=== PATIENT | female | born 1955 | race Caucasian/White ===

== ENCOUNTER 2023-05-25 09:48 | Outpatient (CLI) | payer BC, MEDICARE ==
[2023-05-25] MEDS ORDERED: Lidocaine 1% PF 5 ML VIAL ONE (11:32)
[2023-05-25 16:35] VITALS: TEMP 98.4
== END 2023-05-25 12:30 | disposition home or self-care (01) ==
LOC: ULT 09:48
PROVIDERS: ATTEND Otolaryngology Plastic Surgery within the Head & Neck
DX: E04.2 Nontoxic multinodular goiter (principal)
CPT/HCPCS: 10005; 76536; 88173